=== PATIENT | female | born 1935 | race Two or more races ===

== ENCOUNTER 2018-10-07 19:57 | Emergency (ER) | payer OTHER ==
[~2018-10-07] VITALS: Ht 152.4 cm; Wt 62.1 kg
[2018-10-07] MEDS ORDERED: LOSARTAN POTASS25 MG (20:13)
[2018-10-07] MEDS ORDERED: FOLIC ACID1 MG (20:13)
[2018-10-07] MEDS ORDERED: FERRETTS325 MG (20:13)
[2018-10-07] MEDS ORDERED: DOXYCYCLINE HY100 MG (20:13)
[2018-10-07] MEDS ORDERED: FUROSEMIDE20 MG (20:14)
[2018-10-07] MEDS ORDERED: ZYRTEC10 M3 (20:14)
[2018-10-07] MEDS ORDERED: PLAVIX75 MG (20:14)
[2018-10-07] MEDS ORDERED: METFORMIN HCL850 MG (20:14)
[2018-10-07] MEDS ORDERED: FAMOTIDINE40 MG (20:14)
[2018-10-07] MEDS ORDERED: OMEPRAZOLE40 MG (20:14)
[2018-10-07] MEDS ORDERED: DIGOXIN0.125 MG/2 (20:15)
[2018-10-07] MEDS ORDERED: CARVEDILOL6.25 MG (20:15)
[2018-10-07] MEDS ORDERED: GLIPIZIDE ER10 MG (20:15)
[2018-10-07] MEDS ORDERED: ASPIR 8181 MG (20:15)
[2018-10-07] MEDS ORDERED: INTEGRA PLUS C1 EACH (20:15)
[2018-10-07] MEDS ORDERED: LANTUS SOL100 UNIT/1 (20:16)
[2018-10-07] MEDS ORDERED: SPIRONOLACTONE25 MG (20:16)
[2018-10-07] MEDS ORDERED: LYSIPLEX PLUS178 ML (20:16)
[2018-10-07] MEDS ORDERED: PRAVASTATIN SOD40 MG (20:17)
[2018-10-07] MEDS ORDERED: ARICEPT10 MG (20:17)
== END 2018-10-08 00:40 ==
LOC: ER 19:57
DX: M53.3 Sacrococcygeal disorders, not elsewhere classified (principal)